=== PATIENT | female | born 1985 | race Two or more races ===

== ENCOUNTER 2021-06-18 20:53 | Emergency (ER) | payer SELFPAY ==
[~2021-06-18] VITALS: Ht 165.1 cm; Wt 59.0 kg
--- NOTE | 2021-06-18 21:04 | NUR ---
[id number] FROM THE STREETS FOR ETOH. PT REFUSES TO GIVE ANY INFORMATION. PT AWAKE AND RESPONSIVE TO TOUCH. TOLERATING R/A WELL WITH NO SOB. CONNECTED PT TO POX AND MONITOR. SAFETY MEASURES IN PLACE
--- NOTE | 2021-06-18 21:27 | NUR ---
LAC #18G S/L PATENT AND INTACT. BLOOD COLLECTED AND SENT TO LAB. IVF NS INFUSING ORDERED
[2021-06-18] MEDS ORDERED: IV NS 0.9% 1,000 ML BAG IV ONE (21:30)
--- NOTE | 2021-06-18 21:30 | NUR ---
URINE COLLECTED AND SENT TO LAB
[2021-06-18 21:34] LABS: BASOPHILS % (AUTO) 0.5 % (0.0-2.0); EOSINOPHILS % (AUTO) 0.5 % (0.0-6.0); HEMATOCRIT 40 % (33-45); HEMOGLOBIN 13.2 g/dL (11.5-14.8); LYMPHOCYTES # (AUTO) 3.4 K/uL (0.8-4.8); LYMPHOCYTES % (AUTO) 63.1 % (20.0-44.0); MEAN CORPUSCULAR HGB CONC 33 g/dl (31.0-36.0); MEAN CORPUSCULAR VOLUME 96 fL (82-100); MONOCYTES # (AUTO) 0.4 K/uL (0.1-1.30); MONOCYTES % (AUTO) 7.9 % (2.0-12.0); NEUTROPHILS # (AUTO) 1.5 K/uL (1.8-8.9); PLATELET COUNT (AUTO) 499 K/uL (150-450); RED BLOOD CELL COUNT(AUTO) 4.12 MIL/uL (4.0-5.2); WHITE BLOOD COUNT (AUTO) 5.4 K/uL (4.3-11.0)
[2021-06-18 21:50] LABS: CALCIUM, SERUM 8.1 mg/dL (8.5-10.1); CREATININE 0.5 mg/dL (0.6-1.3); POTASSIUM 2.9 mmol/L (3.5-5.1)
[2021-06-18 21:57] LABS: ALBUMIN 3.3 g/dL (3.4-5.0); BILIRUBIN,TOTAL 0.1 mg/dL (0.2-1.0); TOTAL PROTEIN, SERUM 7.3 g/dL (6.4-8.2)
[2021-06-18 22:19] LABS: BAND % (MANUAL) 1 % (0.0-5.0); LYMPHOCYTES % (MANUAL) 48 % (16-48); MONOCYTES % (MANUAL) 6 % (0-11.0); NEUTROPHILS % (MANUAL) 36 (42-76); REACTIVE LYMPHOCYTES 9 % (0-0)
[2021-06-18 23:08] LABS: BILIRUBIN,URINE NEGATIVE (NEGATIVE); COLOR,URINE YELLOW (YELLOW); LEUKOCYTE ESTERASE ,URINE NEGATIVE (NEGATIVE); NITRITE, URINE NEGATIVE (NEGATIVE); PH,URINE 6.5 (5.0-8.0); PROTEIN,URINE NEGATIVE (NEGATIVE); UGLUCOSE NEGATIVE (NEGATIVE); UROBILINOGEN,URINE 0.2 EU/dL (0.2)
[2021-06-19 07:09] VITALS: BP 112/81
--- NOTE | 2021-06-19 07:44 | NUR ---
IV removed. Catheter intact and site benign. Pressure and 4x4 applied to site. No bleeding noted.
--- NOTE | 2021-06-19 07:45 | NUR ---
PATIENT RAN TOWARDS THE DOOR SAYING "I'M LEAVING", STAFF ATTEMPTED TO RUN AFTER HER TO BRING HER BACK TO HER BED BUT WERE UNABLE TO CATCH HER.
== END 2021-06-19 07:50 | disposition left against medical advice (07) ==
LOC: ER 21:01 → EDBD 21:01 → ER 06-19 07:50
DX: F10.129 Alcohol abuse with intoxication, unspecified (principal); R41.82 Altered mental status, unspecified; R94.31 Abnormal electrocardiogram [ECG] [EKG]; Y90.8 Blood alcohol level of 240 mg/100 ml or more
CPT/HCPCS: 36415; 70450; 80048; 80076; 80307; 80320; 81003; 84703; 85007; 85025; 93005; 96360; 99285; J7030; G0480